=== PATIENT | male | born 1985 ===

== ENCOUNTER 2024-01-30 13:27 | Emergency (ER) | payer SELFPAY ==
[2024-01-30 13:34] VITALS: BP 145/103
[2024-01-30 13:46] LABS: % Basophils 0.8 % (0-2); % Immature Granulocytes 0.4 % (0-0.5); % Lymphocytes 29.8 % (20.5-51.1); % Monocytes 4.4 % (1.7-9.3); % Neutrophils 63.6 % (42.2-75.2); Absolute Basophils 0.1 10^3/uL (0-0.2); Absolute Eosinophils 0.1 10^3/uL (0-0.7); Absolute Lymphocytes 2.4 10^3/uL (1.2-3.4); Absolute Monocytes 0.4 10^3/uL (0.1-0.6); Hematocrit 39.1 % (39.0-52.0); Hemoglobin 12.3 g/dL (13.0-18.0); Mean Corp Hgb Conc. 31.5 g/dL (33.0-37.0); Mean Corpuscular Hgb 22.8 pg (27.0-31.0); Mean Corpuscular Volume 72.5 fL (80.0-94.0); Mean Platelet Volume 9.6 fL (7.4-10.4); Nucleated Red Blood Cells % 0 % (-); Platelet Count 346 10^3/uL (130-400); Red Blood Cell Count 5.39 10^6/uL (4.70-6.10); Red Cell Dist. Width 17.3 % (11.5-14.5); White Blood Cell Count 7.9 10^3/uL (4.8-10.8)
[2024-01-30 14:13] LABS: Troponin I < 0.012 ng/ml
[2024-01-30 14:54] LABS: ALT (SGPT) 19 U/L (0-50); AST (SGOT) 30 U/L (17-59); Albumin 4.2 g/dl (3.5-5.0); Alkaline Phosphatase 127 U/L (38-126); Blood Urea Nitrogen 6 mg/dl (9-20); Calcium 9.4 mg/dl (8.4-10.2); Carbon Dioxide 20 mmol/L (22-30); Chloride 107 mmol/L (98-107); Glucose 150 mg/dl (70-99); Potassium 4.2 mmol/L (3.5-5.1); Sodium 137 mmol/L (135-145); Total Bilirubin 0.4 mg/dl (0.2-1.3); eGFR > 60.00
--- NOTE | 2024-01-30 16:18 | ED.GENMED ---
History of Present Illness
General
Chief Complaint: Chest Pain
Time Seen by Provider: 01/30/24 15:37
History of Present Illness
History of Present Illness:
38-year-old male with no known past medical history presents to the emergency department with a myriad of complaints. Primarily he reports chest pressure and indigestion for the past 2 weeks. Denies any exertional chest pain or shortness of
breath. He also notes bilateral neck discomfort that radiates to both shoulders. He also endorses constipation with rectal discomfort when having bowel movements. Lastly he reports chronic anxiety and depression and request help with this but
denies any suicidal or homicidal ideation
Review of Systems
Review of Systems
Allergies reviewed?: Yes
All Other Systems: ROS reviewed and negative except as documented in HPI and ROS
Phy Exam
Physical Exam
Physical Exam:
GEN: Well appearing, NAD, WDWN
HEENT: Oral mucosa moist, no scleral icterus
Cardiac: Regular rate and rhythm, no murmurs
Lung: No respiratory distress, no tachypnea, lungs clear to auscultation bilaterally
MSK: No gross deformity or injuries, normal unrestricted neck range of motion in all george, tenderness to bilateral paraspinous cervical musculature noted
Skin: Good color, no pallor or jaundice, no rashes
Neuro: AO x3, moves all extremities freely
Psych: Calm, cooperative
Scores
Heart Score for Chest Pain Patients
STEMI patient?: No
History: Slightly or Non-Suspicious
ECG: Normal
Age: </= 45 years
Risk Factors: No Risk Factors
Troponin: </= Normal Limit
Heart Score for Chest Pain Patients: 0
Heart Score Risk: 2.5% MACE over next 6 weeks
Course
Orders/Labs/Results
Orders:
Orders
01/30/24 13:34
EKG [Electrocardiogram (*1)] Urgent
Reason for Study: Chest Pain
EKG- Treatment ONCE
01/30/24 13:41
Complete Blood Count/With Diff Urgent
Comprehensive Metabolic Panel Urgent
Troponin I Urgent
Abnormal Lab Results
01/30/24
13:41
Hgb 12.3 L g/dL
(13.0-18.0)
MCV 72.5 L fL
(80.0-94.0)
MCH 22.8 L pg
(27.0-31.0)
MCHC 31.5 L g/dL
(33.0-37.0)
RDW 17.3 H %
(11.5-14.5)
Carbon Dioxide 20 L mmol/L
(22-30)
BUN 6 L mg/dl
(9-20)
Creatinine 0.6 L mg/dL
(0.7-1.3)
Glucose 150 H mg/dl
(70-99)
Alkaline Phosphatase 127 H U/L
(38-126)
01/30/24 13:41
01/30/24 13:41
Vital Signs
Initial and Last Documented VS:
Initial Vital Signs
Temp Pulse Resp BP Pulse Ox
98.3 F 85 18 145/103 100
01/30/24 13:34 01/30/24 13:34 01/30/24 13:34 01/30/24 13:34 01/30/24 13:34
Last Documented Vital Signs
Temp Pulse Resp BP Pulse Ox
98.3 F 85 18 145/103 100
01/30/24 13:34 01/30/24 13:34 01/30/24 13:34 01/30/24 13:34 01/30/24 13:34
MDM/Problems Addressed
MDM/Problems Addressed:
Patient has a litany of complaints, his chest pain complaints are likely due to GERD and not likely ACS given his lack of ACS risk factors, young age, and normal cardiac workup. In regards to his constipation and rectal pain this is likely
hemorrhoidal in nature and thus we will prescribe him steroid suppositories. Recommend he follow-up with the primary care physician regarding all of the other issues, provided with information for the family medicine residency clinic here at
[place]
Comment
Comment:
EKG dependently interpreted by me shows normal sinus rhythm at a rate of [address] changes although there is patient motion artifact in V1 and V2 that markedly limits interpretation
*Critical Care Note
Total Time (30-74mins, 75-104mins- exclusive of procedures): Not Applicable
ED Attending Note
-
Portions of this chart may have been created with voice recognition software.� Occasional wrong word or��sound alike� substitutions may have occurred due to the inherent limitations of voice recognition software.
Discharge Plan
Departure
Patient Disposition: Home (Routine Discharge)
Date of Disposition: 01/30/24
Time of Disposition: 16:18
Patient with high blood pressure during this ER visit?: No
Discharge Problem:
Neck pain, Gastroesophageal reflux disease, Constipation
Instructions: Anxiety, Adult ED
Prescriptions:
New
hydrocortisone acetate [Anusol-HC] 25 mg suppository
25 mg MD HS 7 Days Qty: 12 0RF
naproxen 500 mg tablet
500 mg PO BID Qty: 20 0RF
Referrals:
NONE,* [Family Provider] -
Activity Restrictions/Additional Instructions:
[facility]
[address]
[place] [address]
[phone]
Interventions
Interventions:
*Risk Screen - Suicide Last Done: 01/30/24 13:34
*General Assessment Last Done: 01/30/24 13:34
*Neglect/Abuse Screening Last Done: 01/30/24 13:34
ED- Fall Risk Assessment Last Done: 01/30/24 16:47
*ED COVID-19 Vaccine History Last Done: 01/30/24 13:34
*Nursing Disposition Last Done: 01/30/24 16:47
ED- Cardiac Assessment Last Done: 01/30/24 16:47
Discharge Date and Time
Discharge Date/Time: 01/30/24 16:49
Print Language: [place]
== END 2024-01-30 16:49 | disposition home or self-care (01) ==
LOC: EMR 13:27
PROVIDERS: Emergency Medicine; EMERGENCY PHYSICIAN Emergency Medicine
DX: M54.2 Cervicalgia (principal); R07.89 Other chest pain; K59.00 Constipation, unspecified; K30 Functional dyspepsia; K21.9 Gastro-esophageal reflux disease without esophagitis; K62.89 Other specified diseases of anus and rectum; F41.9 Anxiety disorder, unspecified; F32.A Depression, unspecified
CPT/HCPCS: 99283; 80053; 84484; 85025; 93005

== ENCOUNTER 2024-04-02 15:24 | Emergency (ER) | payer SELFPAY ==
[2024-04-02 15:31] VITALS: BP 119/88
--- NOTE | 2024-04-02 16:33 | ED.GENMED ---
History of Present Illness
General
Chief Complaint: Crisis Evaluation
Source: patient
Exam Limitations: none
Time Seen by Provider: 04/02/24 16:07
Nursing documentation reviewed up to this point in time: agreed with
History of Present Illness
History of Present Illness:
2-year-old male presents emergency room complaining of feeling sad. Speaking through inspector golf ball. He denies suicidal or homicidal ideation.
Past History
Past History
ED Past Medical History: Psychiatric (Depression) and Other (Sleep disorder)
ED Past Surgical History: None
Social History
Tobacco: Non-smoker
Alcohol: None
Drug: None
Living: with family
Review of Systems
Review of Systems
Allergies reviewed?: Yes
All Other Systems: Not applicable
Constitutional: Reports no symptoms
EENT: Reports no symptoms
Respiratory: Reports no symptoms
Cardiac: Reports no symptoms
ABD/GI: Reports no symptoms
: Reports no symptoms
Musculoskeletal: Reports no symptoms
Skin: Reports no symptoms
Neurological: Reports no symptoms
Endocrine: Reports no symptoms
Hematologic/Lymphatic: Reports no symptoms
Psychiatric: Reports depression; Denies suicidal
Phy Exam
Physical Exam
Physical Exam:
Physical Exam
General: no apparent distress, not acutely ill
Neck: supple. no meningeal signs. normal posterior pharynx
Heart: s1/s2 regular rate and rhythm, no murmur. equal radial
pulses.
HEENT: Pupils equal round reactive to light, EOMI
Lungs: no acute respiratory distress. clear bilaterally
Abdomen: normal bowel sounds. not tender. no CVAT
Neuro: alert and oriented. no focal neurological deficits cranial nerves II through XII intact
Skin: no rash
Psychiatric: well kept. interactive and cooperative
Extremities: no edema. no calf tenderness. negative homans. good distal pulses
Course
Orders/Labs/Results
Orders:
Orders
04/02/24 15:39
1:1 Observation - Suicide/ Violent Behavior As Directed
Crisis Consult Routine
Reason for Consult: si
04/02/24 16:07
Acetaminophen [Tylenol] 650 mg PO NOW STA
04/02/24 18:22
Acetaminophen [Tylenol] 650 mg PO NOW STA
Vital Signs
Initial and Last Documented VS:
Initial Vital Signs
Temp Pulse Resp BP Pulse Ox
98.4 F 82 18 119/88 100
04/02/24 15:31 04/02/24 15:31 04/02/24 15:31 04/02/24 15:31 04/02/24 15:31
Last Documented Vital Signs
Temp Pulse Resp BP Pulse Ox
98.4 F 82 18 119/88 98
04/02/24 15:31 04/02/24 15:31 04/02/24 15:31 04/02/24 15:31 04/02/24 15:31
MDM/Problems Addressed
Differential Diagnosis Includes:
Depression
MDM/Problems Addressed:
38-year-old male with depression, denying suicidal ideation. He also states he gets migraines. Normal neurologic exam. Do not suspect SI or HI. Patient stable for discharge.
*Pulse Oximetry
Patient hypoxic: no
*Critical Care Note
Total Time (30-74mins, 75-104mins- exclusive of procedures): Not Applicable
Patient Management
Social determinants of health affecting care: Living situation
Discussion with other providers: Court [facility] (burlap worker also agrees patient does not require inpatient admit)
Escalation/DeEscalation of care consider admission/obs:
Admit not indicated
ED Attending Note
-
Portions of this chart may have been created with voice recognition software.� Occasional wrong word or��sound alike� substitutions may have occurred due to the inherent limitations of voice recognition software.
Discharge Plan
Departure
Patient Disposition: Home (Routine Discharge)
Date of Disposition: 04/02/24
Time of Disposition: 18:06
Patient with high blood pressure during this ER visit?: No
Condition: Good
Discharge Problem:
Depression
Instructions: Depression, Adult (DC)
Prescriptions:
No Action
hydrocortisone acetate [Anusol-HC] 25 mg suppository
25 mg MD HS 7 Days Qty: 12 0RF
naproxen 500 mg tablet
500 mg PO BID Qty: 20 0RF
Referrals:
[facility] [Provider Group] - Call in 1-3 days for appt
[facility] [Outside] - Call in 1-3 days for appt
UNKNOWN - PT DOES,NOT KNOW [Family Provider] -
Interventions
Interventions:
*Risk Screen - Suicide Last Done: 04/02/24 15:31
*General Assessment Last Done: 04/02/24 15:31
*Neglect/Abuse Screening Last Done: 04/02/24 15:31
*ED COVID-19 Vaccine History Last Done: 04/02/24 15:31
ED-Psychological Assessment Last Done: 04/02/24 16:36
Discharge Date and Time
Print Language: VINCENTIAN
--- NOTE | 2024-04-02 16:34 | EDRN ---
With the use of Leo paraprofessional interpreter pt was interviewed along side of Dr. Esparza. He reports feeling sad for several weeks. He denies si/hi through paraprofessional interpreter. He works at a liquor store and vapes occasionally. Drinks beer occasionally and no
hard liquor. He arrived here by [employer] and lives with mother and brother. He has two daughters who are in [place]. He takes Arin 40mg (from [place]) for BP .
[2024-04-02 16:36] VITALS: BMI 28.8
== END 2024-04-02 18:51 | disposition home or self-care (01) ==
LOC: EMR 15:24
PROVIDERS: EMERGENCY PHYSICIAN Emergency Medicine
DX: F32.A Depression, unspecified (principal); F41.9 Anxiety disorder, unspecified; G43.909 Migraine, unspecified, not intractable, without status migrainosus; G47.9 Sleep disorder, unspecified; F17.290 Nicotine dependence, other tobacco product, uncomplicated
CPT/HCPCS: 99282